=== PATIENT | female | born 1990 | race Hispanic/Latino ===

== ENCOUNTER 2025-10-03 17:25 | Emergency (ER) | payer BC, OTHER ==
[~2025-10-03] VITALS: Ht 152.4 cm; Wt 54.4 kg
--- NOTE | 2025-10-03 17:50 | ERN ---
ED Note History of Present Illness Stated Complaint: BACK PAIN Chief Complaint: Low Back Pain/Injury Time Seen by MD: 17:32 Time Seen by Midlevel: 17:32 Dictation: The patient is a 35-year-old female with history of tubal ligation, depression PTSD who presents to the emergency department with complains of lower back pain for over a year after a accident. Patient denies any urinary or fecal incontinence, denies any lower extremity numbness or tingling. Reports she has an appointment with her PCP for this on Oct 09 and just wants pain medication. Home Meds Active Scripts Cyclobenzaprine HCl (Flexeril) 10 Mg Tab, 10 MG PO TID for muscle sstiffness, #14 TAB 0 Refills Prov:IHSANMICHAEL [facility] 10/03/25 Lidocaine (Lidocaine) 4 % Adh..patch, 1 PATCH TP DAILY for 10 Days, #10 PATCH 0 Refills Prov:CHAMPAGNESRINIVAS BEVERLYLEN [facility] 10/03/25 Past Medical History Past Medical History: Anxiety, Depression, Other Additional Past Medical Hx: PTSD Surgical History: Other Surgical History Other: BACK RN Note Reviewed/Agreed w/PFSH: Yes Review of System Dictation Constitutional: Negative for fever,chills, and weight loss Eyes: Negative for injury, pain,redness, and discharge ENT: Negative for injury,pain or swelling Cardiovascular: Negative for chest pain, palpitations, and edema Respiratory: Negative for shortness of breath, cough, and wheezing, Abdomen/GI: Negative for abdominal pain, nausea, vomiting, diarrhea, and constipation Back: Positive for low back pain : Negative for injury, bleeding and discharge MS/Extremity: Negative for injury and deformity Skin: Negative for rash, and discoloration Neuro: Negative for headache, weakness, numbness, tingling, and seizure Psych: Negative for suicide ideation, homicidal ideation, and hallucinations Initial Vital Sign VS Vital Signs Date Time Temp Pulse Resp B/P (MAP) Pulse Ox O2 Delivery O2 Flow Rate FiO2 10/03/25 17:31 98.6 70 18 99/36 100 10/03/25 18:36 Room Air* 0 21 Physical Exam Dictation Vital Signs reviewed General Appearance: Alert, oriented x 3, no acute distress, well developed, nourished. Head and Face: non-traumatic. Eyes: PERRL, pink conjunctivas, eyelid no trauma, anterior chamber with arcus senilis. Ears: Pinnas intact and no signs of trauma or erythema ear canals clear and no discharge TM no erythema Nose: No discharge, no bleeding. Oropharynx: Mouth normal, tongue pink. pharynx clear,no erythema, tonsils no exudates, no abscesses noted, mucous membrane moist Neck: Supple, non-tender, no thyromegaly, no masses, no JVD, no bruits Breast:Deferred Chest:No tenderness, no crepitus, no paradoxical movement, no retractions Lungs:Clear, well-ventilated, symmetric, no rales, no wheezing, no rhonchi, no stridor, good breath sounds bilaterally Heart: Regular rate, regular rhythm, no murmur, no gallops Vascular: no peripheral edema, dorsalis pedis 3+ bilaterally Abdomen: Soft, positive bowel sounds, nondistended, no guarding, nontender, no rebound, no masses no hepatomegaly, no splenomegaly, no Patterson's sign, no hernias. Rectal: Deferred Genital: Deferred Neurological: Normal speech, motor function intact, sensory function intact Musculoskeletal: Neck nontender, full range of motion, back nontender, full range of motion, Extremities: nontender, full range of motion Skin: Color pink, dry, no turgor, no rash, no lacerations, no abrasions, no contusions. Lymphatic: Deferred Results (Laboratory/Radiology) Labs Reviewed?: Yes ED Course ED Course Orders Procedure Category Date Status Time ,Urine Test LAB 10/03/25 Logged 17:39 Triamcinolone Acet PHA 10/03/25 Pending 40mg/Ml 1ml (Kenalog 18:00 Orphenadrine Citrate PHA 10/03/25 Pending (Norflex) 18:00 Current Medications Medications (Trade) Dose Ordered Sig/Milli Route PRN Reason Start Time Stop Time Status Last Admin Dose Admin Orphenadrine Citrate (Norflex) 60 mg ONCE ONCE IM 10/03/25 18:00 10/03/25 18:01 UNV Triamcinolone Acetonide (Kenalog 40) 40 mg ONCE ONCE IM 10/03/25 18:00 10/03/25 18:01 UNV Vital Signs Date Time Temp Pulse Resp B/P (MAP) Pulse Ox O2 Delivery O2 Flow Rate FiO2 10/03/25 18:36 98.6 67 18 100/67 99 Room Air* 0 21 10/03/25 17:31 98.6 70 18 99/36 100 Medical Decision Making MDM The patient is a 35-year-old female with history of tubal ligation, depression PTSD who presents to the emergency department with complains of lower back pain for over a year after a accident. Patient denies any urinary or fecal incontinence, denies any lower extremity numbness or tingling. Reports she has an appointment with her PCP for this on Oct 09 and just wants pain medication. Patient does not want any x-rays and just wanted pain medications. Patient ot herwise in no acute distress, lower extremities with no numbness or tingling, no urinary or fecal incontinence. Patient ambulatory. Patient will be discharged to follow up with PCP. Differential diagnosis: Chronic back pain, lumbar strain, lumbar fracture Need for hospitalization: Patient does not meet criteria for hospitalization. There are no social concerns with this patient. DX & DISP Disposition: Discharge Departure Impression: Primary Impression: Exacerbation of chronic back pain Condition: Stable Scripts Cyclobenzaprine HCl (Flexeril) 10 Mg Tab 10 MG PO TID for muscle sstiffness, #14 TAB 0 Refills Prov: MICHAEL CHAMPAGNE 10/03/25 Lidocaine (Lidocaine) 4 % Adh..patch 1 PATCH TP DAILY for 10 Days, #10 PATCH 0 Refills Prov: MICHAEL CHAMPAGNE 10/03/25 Additional Instructions: Please follow up with your PCP in 1-2 days. Take mediations as prescribed. If anything worsens please return to ER. Referrals: SELF,REFERRAL (PCP) Time of Disposition: 18:58 I have reviewed the case, and I agree with, Diagnosis and Plan MICHAEL CHAMPAGNE Oct 03, 2025 17:50
[2025-10-03] MEDS ORDERED: CYCL10TA16 PO (18:59)
[2025-10-03] MEDS ORDERED: LIDO1ADH82 TP (18:59)
[2025-10-03] MEDS: ORPHENADRINE 60MG/2ML IM ONE (19:35)
[2025-10-03] MEDS: TRIAMCINOLONE ACETONIDE 40 MG/ML 1ML VIAL IM ONE (19:36)
[2025-10-03 19:45] VITALS: BP 112/68; PULSE 62; RESP 18; TEMP 98.6; O2SAT 100
== END 2025-10-03 19:46 | disposition home or self-care (01) ==
LOC: EDH 17:25
DX: M54.50 Low back pain, unspecified (principal); G89.29 Other chronic pain; F41.9 Anxiety disorder, unspecified; F32.A Depression, unspecified
CPT/HCPCS: 99284; 96372 ×2; J3301; J2360